=== PATIENT | female | born 1980 | race American Indian/Alaskan Native ===

== ENCOUNTER 2017-07-20 13:48 | Emergency (ER) | payer OTHER ==
[2017-07-20] MEDS ORDERED: ZOFRAN IV ONE ×2 (14:22→21:28)
[2017-07-20] MEDS ORDERED: NACL 0.9% 1000 ML 1,000 ML IV ONE (14:22)
[2017-07-20 15:18] LABS: Basophils % (Auto) 0.2 % (0.0-1.8); Eosinophils % (Auto) 0.5 % (0.0-4.3); Hematocrit 30.9 % (30.3-42.9); Hemoglobin 9.6 gm/dl (10.1-14.3); Lymphocytes # (Auto) 1.4 K/mm3 (1.2-5.4); Lymphocytes % (Auto) 13.7 % (13.4-35.0); Mean Corpuscular HGB Conc 31 % (30-34); Monocytes # (Auto) 0.9 K/mm3 (0.0-0.8); Monocytes % (Auto) 9.1 % (0.0-7.3); Platelet Count 314 K/mm3 (140-440); Red Blood Count 4.62 M/mm3 (3.65-5.03); Red Cell Distribution Width 19.4 % (13.2-15.2)
[2017-07-20 15:41] LABS: Mean Corpuscular Hemoglobin 21 pg (28-32); Mean Corpuscular Volume 67 fl (79-97)
[2017-07-20 15:42] LABS: Alanine Aminotransferase 18 units/L (7-56); Albumin 3.6 g/dL (3.9-5); BUN/Creatinine Ratio 13; Blood Urea Nitrogen 8 mg/dL (7-17); Calcium 8.7 mg/dL (8.4-10.2); Hemolysis Index 3; Lipase 25 units/L (13-60)
--- NOTE | 2017-07-20 16:15 | Emergency Department Report ---
ED Abdominal Pain HPI - General Chief Complaint: Abdominal Pain Stated Complaint: OB/POSS MISCARRIAGE Time Seen by Provider: 07/20/17 16:05 Source: patient, EMS Mode of arrival: Stretcher Limitations: No Limitations - History of Present Illness Initial Comments: Is a 37-year-old female who presents to emergency room with abdominal cramping 3 days and become worse today. Patient is 16 weeks and has had care. Patient also complains of nausea and vomiting. Patient describes it as a cramping as fluctuating in intensity and intermittent. Patient does not describe them as a contraction though patient does complain of constant vaginal pressure. Patient also states that she had some fluid per the vagina but no vaginal bleeding. Patient states the pain is at its worse at 10 out of 10 and and at times is as low as 5 out of 10. Patient states the pain is better with rest and lying still. Patient states that the pain is worse with walking and moving. MD Complaint: abdominal pain -: Sudden Location: suprapubic Radiation: other (vagina) Severity scale (0 -10): 10 Quality: cramping, stabbing Consistency: intermittent Improves With: rest Worsens With: movement Context: other () Associated Symptoms: nausea, vomiting - Related Data LMP (females 10-50): Previous Rx's Medication Instructions Recorded Last Taken Type Acetaminophen/Codeine 1 tab PO Q6H PRN #25 tab 05/09/14 Unknown Rx [Acetaminophen-Codeine #3 TAB] Diazepam 5 mg PO TID PRN #21 tablet 05/24/14 Unknown Rx Diclofenac Sodium 75 mg PO BID PRN #30 tablet. 05/24/14 Unknown Rx Indomethacin [Indocin] 25 mg PO Q8H 3 Days #9 capsule 07/20/17 Unknown Rx Ondansetron [Zofran Odt] 4 mg PO Q8H PRN #30 tab.rapdis 07/20/17 Unknown Rx Allergies Allergy/AdvReac Type Severity Reaction Status Date / Time No Known Allergies Allergy Verified 07/20/17 14:06 ED Review of Systems ROS: Stated complaint: OB/POSS MISCARRIAGE Other details as noted in HPI Constitutional: no symptoms reported. denies: chills, fever Eyes: as per HPI. denies: eye pain, eye discharge, vision change ENT: as per HPI. denies: ear pain, throat pain Respiratory: no symptoms reported. denies: cough, shortness of breath, wheezing Cardiovascular: denies: chest pain, palpitations Endocrine: no symptoms reported Gastrointestinal: as per HPI, abdominal pain, nausea. denies: diarrhea Genitourinary: denies: urgency, dysuria, discharge Musculoskeletal: denies: back pain, joint swelling, arthralgia Skin: denies: rash, lesions Neurological: denies: headache, weakness, paresthesias Psychiatric: denies: anxiety, depression Hematological/Lymphatic: denies: easy bleeding, easy bruising ED Past Medical Hx - Past Medical History Previous Medical History?: Yes Additional medical history: ? history of thyroid problems per patient - Surgical History Past Surgical History?: No - Family History Family history: no significant - Social History Smoking Status: Never Smoker Substance Use Type: None - Medications Home Medications: Home Medications Medication Instructions Recorded Confirmed Last Taken Type Acetaminophen/Codeine 1 tab PO Q6H PRN #25 tab 05/09/14 12/29/15 Unknown Rx [Acetaminophen-Codeine #3 TAB] Diazepam 5 mg PO TID PRN #21 tablet 05/24/14 12/29/15 Unknown Rx Diclofenac Sodium 75 mg PO BID PRN #30 tablet.dr 05/24/14 12/29/15 Unknown Rx Indomethacin [Indocin] 25 mg PO Q8H 3 Days #9 capsule 07/20/17 Unknown Rx Ondansetron [Zofran Odt] 4 mg PO Q8H PRN #30 tab.rapdis 07/20/17 Unknown Rx ED Physical Exam - General Limitations: No Limitations General appearance: alert, in no apparent distress - Head Head exam: Present: atraumatic, normocephalic - Eye Eye exam: Present: normal appearance - ENT ENT exam: Present: mucous membranes moist - Neck Neck exam: Present: normal inspection - Respiratory Respiratory exam: Present: normal lung sounds bilaterally. Absent: respiratory distress - Cardiovascular Cardiovascular Exam: Present: regular rate, normal rhythm. Absent: systolic murmur, diastolic murmur, rubs, gallop - GI/Abdominal GI/Abdominal exam: Present: soft, tenderness (suprapubic tenderness), normal bowel sounds - Extremities Exam Extremities exam: Present: normal inspection - Back Exam Back exam: Present: normal inspection - Neurological Exam Neurological exam: Present: alert, oriented X3 - Psychiatric Psychiatric exam: Present: normal affect, normal mood - Skin Skin exam: Present: warm, dry, intact, normal color. Absent: rash ED Course Vital Signs 07/20/17 07/20/17 07/20/17 13:57 14:31 15:00 Temperature 99.5 F Pulse Rate 119 H 122 H 103 H Respiratory 20 28 H 15 Rate Blood Pressure 131/75 131/75 101/47 O2 Sat by Pulse 100 99 100 Oximetry 07/20/17 07/20/17 07/20/17 15:15 15:30 16:01 Temperature Pulse Rate 91 H 105 H Respiratory 20 25 H 31 H Rate Blood Pressure 109/57 123/81 O2 Sat by Pulse 100 100 100 Oximetry 07/20/17 07/20/17 07/20/17 16:55 17:00 17:31 Temperature Pulse Rate 102 H 97 H 104 H Respiratory 17 22 16 Rate Blood Pressure 113/71 110/72 123/81 O2 Sat by Pulse 96 100 100 Oximetry 07/20/17 07/20/17 07/20/17 17:39 18:00 18:31 Temperature Pulse Rate 98 H Respiratory 16 21 18 Rate Blood Pressure 105/57 105/57 O2 Sat by Pulse 100 100 Oximetry 07/20/17 19:00 Temperature Pulse Rate 103 H Respiratory 20 Rate Blood Pressure 113/68 O2 Sat by Pulse 100 Oximetry - Reevaluation(s) Reevaluation #1: 07/20/17 19:14... Spoke with Dr. Sin, LABOR DELIVERY SPECIALIST acquisition marketing manager for patient's OB, she recommends discharging the patient home with a prescription of indomethacin 25 mg 3 times a day for 3 days and a loading dose in the Hospital of indomethacin [address] Sin states that this is a fibroid pain due to patient being and having such large fibroids. Labs and ultrasound discussed fully with Dr. Sin. Patient dynamically stable and Dr. Sin feels the patient is stable for discharge. Dr. Sin states she will see the patient the morning at the office. Reevaluation #2: 07/20/17 19:42... Patient doing better. Patient stable for discharge ED Medical Decision Making - Lab Data Result diagrams: 07/20/17 14:40 07/20/17 14:40 - Radiology Data Radiology results: report reviewed - Medical Decision Making Discussed case with LABOR DELIVERY SPECIALIST. An LABOR DELIVERY SPECIALIST feels that the patient is stable for discharge from a standpoint of the . Patient is stable for discharge. Patient will be given prescriptions and instructions to follow up with her OB/ [employer] office in the morning. All labs discuss with patient - Differential Diagnosis threatened , abdominal pain, infection, fibroid pain Critical care attestation.: If time is entered above; I have spent that time in minutes in the direct care of this critically ill patient, excluding procedure time. ED Disposition Clinical Impression: Abdominal pain, , Nausea & vomiting, Fibroids Disposition: TO HOME OR SELFCARE Is pt being admited?: No Does the pt Need Aspirin: No Condition: Stable Instructions: Abdominal Pain (ED), Uterine Fibroids (ED) Additional Instructions: Patient to follow up with LABOR DELIVERY SPECIALIST office in the morning. Patient to return to ER if condition worsens. Patient increase water. Patient to continue vitamin. Patient take Indocin as directed. Patient to rest and take Tylenol when necessary Prescriptions: Indomethacin [Indocin] 25 mg PO Q8H 3 Days #9 capsule Ondansetron [Zofran Odt] 4 mg PO Q8H PRN #30 tab.rapdis PRN Reason: Nausea And Vomiting Referrals: PRIMARY CARE, [Primary Care Provider] - 3-5 Days Time of Disposition: 19:42
--- NOTE | 2017-07-20 17:01 | Ultrasound Report ---
FINAL REPORT PROCEDURE: US OB > = 14 WEEKS FETUS TECHNIQUE: Real-time limited sonographic examination was performed for evaluation of size, position, heartbeat, fluid volume for each fetus with image documentation (1 or more fetuses). CPT 35314 HISTORY: abd pain COMPARISON: No prior studies are available for comparison. FINDINGS: There is a single living intrauterine gestation currently visualized in the transverse presentation head on the maternal left. heart rate of 148 beats per minute is detected. The amount of amniotic fluid subjectively appears normal. Cervix length 3.5 centimeter. Grade 0 placenta visualized posterior and fundal. No evidence of placenta abruption or placenta previa. Detailed exam of the anatomy was not performed today. No gross abnormalities are seen on the images provided. There is a large mass visualized in the lower uterine segment anteriorly measuring 10 centimeter x 8 centimeter x 0.5 centimeters. This shows heterogeneous decreased echogenicity in consistent with a large fibroid. A smaller fibroid measuring 2.1 x 2.3 x 1.8 centimeter is also visualized anteriorly. MEASUREMENTS BPD: 3.7 centimeter equals 17 week 2 days. HC: 13.8 centimeter equals. AC: 17 week 1 day 11.3 centimeter equals 17 week 1 day. FL: 2.1 centimeter equals 16 week 2 days. Mean Gestational Age (composite criteria): 17 week 0 day. Estimated Weight: 168 grams. Plus or minus 25 grams. 0 pound 6 ounces +/-1 ounce estimated date of confinement 12/28/2017 +/-1.5 weeks. IMPRESSION: There is a single living intrauterine gestation visualized currently in the transverse presentation head on the maternal left. Amount of amniotic fluid appears normal. Average sonographic age by today's study is 17 week 0 days. This places the EDC at 12/28/2017 +/-1.5 weeks detailed exam of the anatomy was not performed today. The images provided showed no gross abnormality. Large uterine fibroids present as described above. Please see above.
[2017-07-20] MEDS ORDERED: MORPHINE IV ONE (17:10)
[2017-07-20] MEDS ORDERED: MORPHINE ONE (17:26)
[2017-07-20] MEDS ORDERED: MORPHINE IV PRN (18:56)
[2017-07-20 19:19] LABS: Bilirubin,Urine NEG (Negative); Blood,Urine NEG (Negative); Color,Urine Yellow (Yellow); Hyaline Casts,Urine 1 /LPF; Mucus,Urine FEW /HPF; Nitrite,Urine NEG (Negative); Protein,Urine <15 mg/dL mg/dL (Negative); Urobilinogen,Urine < 2.0 mg/dL (<2.0); WBC,Urine < 1.0 /HPF (0.0-6.0)
[2017-07-20] MEDS ORDERED: INDOCIN PO ONE (21:00)
[2017-07-20 21:49] VITALS: BP 126/74
== END 2017-07-20 22:19 | disposition home or self-care (01) ==
LOC: ED 13:48
DX: O34.12 Maternal care for benign tumor of corpus uteri, second trimester (principal); Z3A.16 16 weeks gestation of pregnancy; O21.0 Mild hyperemesis gravidarum; R10.9 Unspecified abdominal pain
CPT/HCPCS: 36415; 76805; 80053; 81001; 83690; 84702; 85025; 96361; 96374; 96375; 96376; 99284; J2270; J2405; J7030

== ENCOUNTER 2019-08-06 10:37 | Emergency (ER) | payer OTHER ==
[2019-08-06] MEDS ORDERED: SODIUM CHLORIDE 0.9% 1000 ML 1,000 ML IV ONE (11:17)
[2019-08-06] MEDS ORDERED: ONDANSETRON 4 MG/2 ML INJ IV ONE (11:17)
[2019-08-06] MEDS ORDERED: SODIUM CHLORIDE 0.9% 1000 ML 2,000 ML IV ONE (11:17)
--- NOTE | 2019-08-06 11:18 | Emergency Department Report ---
ED General Adult HPI - General Chief complaint: Syncope Stated complaint: SYNCOPE Time Seen by Provider: 08/06/19 11:07 Source: patient, EMS ( EMS documentation not available at time of chart dictation ), RN notes reviewed, old records reviewed Mode of arrival: Stretcher Limitations: No Limitations - History of Present Illness Initial comments: Patient is a 39-year-old female. She is not known to myself previously. During the history and physical examination, I am soft shoe dancer and escorted by nurse Julissa Reynolds. She states that she is not . She presents to the ER today with a complaint of nasal congestion, cough, diarrhea, and generalized weakness. Apparently she was at court earlier on today, and felt quite weak. She reports multiple sick contacts in her young children, some of whom have been diagnosed with the flu, 7 or 8 days ago. She reports a few episodes of nonbloody, nonbilious diarrhea, painless, without irritative or obstructive urinary symptoms. She denies leg pain and leg swelling. 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 The patient denies chest pain and exertional shortness of breath. Her cough is intermittent. Her nasal congestion is intermittent. Her diarrhea is apparently now resolved. In the emergency room, she is given IV fluids and supportive care, all of which markedly improved her symptoms. -: Gradual, days(s) Location: face Consistency: intermittent Improves with: medication, rest Worsens with: none Associated Symptoms: cough, fever/chills, malaise, nausea/vomiting, weakness - Related Data Previous Rx's Medication Instructions Recorded Last Taken Type Acetaminophen [Non-Aspirin Extra 500 mg PO Q6HR PRN #30 tablet 08/06/19 Unknown Rx Strength] Albuterol Sulfate [Proair 90 mcg IH Q4HR PRN #2 [email or web address] 08/06/19 Unknown Rx Respiclick] Ondansetron [Zofran Odt] 4 mg PO Q8HR PRN #20 tab.rapdis 08/06/19 Unknown Rx Allergies Allergy/AdvReac Type Severity Reaction Status Date / Time No Known Allergies Allergy Verified 07/20/17 14:06 ED Review of Systems ROS: Stated complaint: SYNCOPE Other details as noted in HPI Constitutional: see HPI Eyes: as per HPI ENT: as per HPI Respiratory: see HPI Cardiovascular: as per HPI Endocrine: see HPI Gastrointestinal: as per HPI Genitourinary: as per HPI Musculoskeletal: as per HPI Skin: as per HPI Neurological: as per HPI Psychiatric: as per HPI Hematological/Lymphatic: as per HPI ED Past Medical Hx - Past Medical History Hx Seizures: Yes Hx Asthma: Yes Additional medical history: ? history of thyroid problems per patient - Surgical History Additional Surgical History: - Social History Smoking Status: Never Smoker Substance Use Type: None - Medications Home Medications: Home Medications Medication Instructions Recorded Confirmed Last Taken Type Acetaminophen [Non-Aspirin Extra 500 mg PO Q6HR PRN #30 tablet 08/06/19 Unknown Rx Strength] Albuterol Sulfate [Proair 90 mcg IH Q4HR PRN #2 [email or web address] 08/06/19 Unknown Rx Respiclick] Ondansetron [Zofran Odt] 4 mg PO Q8HR PRN #20 tab.rapdis 08/06/19 Unknown Rx ED Physical Exam - General Limitations: No Limitations General appearance: alert, anxious, obese - Head Head exam: Present: atraumatic, normocephalic - Eye Eye exam: Present: normal appearance, EOMI. Absent: nystagmus - ENT ENT exam: Present: normal exam, normal orophraynx, mucous membranes moist, normal external ear exam - Neck Neck exam: Present: normal inspection, full ROM. Absent: tenderness, meningismus - Respiratory Respiratory exam: Present: normal lung sounds bilaterally. Absent: respiratory distress, chest wall tenderness, accessory muscle use, decreased breath sounds, prolonged expiratory - Cardiovascular Cardiovascular Exam: Present: regular rate, normal rhythm, normal heart sounds. Absent: bradycardia, tachycardia, irregular rhythm, systolic murmur, diastolic murmur, rubs, gallop - GI/Abdominal GI/Abdominal exam: Present: soft, normal bowel sounds. Absent: distended, tenderness, guarding, rebound, rigid, pulsatile mass - Extremities Exam Extremities exam: Present: normal inspection, full ROM, other (2+ pulses noted in the bilateral upper and lower extremities. There is no palpable cord. negative Homans sign. Muscular compartments are soft. The pelvis is stable.). Absent: pedal edema, calf tenderness - Back Exam Back exam: Present: normal inspection, full ROM. Absent: tenderness, CVA ten derness (R), CVA tenderness (L), paraspinal tenderness, vertebral tenderness - Neurological Exam Neurological exam: Present: alert, oriented X3, other (There is no facial droop. The tongue is midline. Extraocular movements are intact bilaterally. There is 5 out of 5 strength in bilateral upper and lower extremities. Sensation is intact to light touch bilateral upper and lower extremities. There is no past- pointing. There is no pronator drift. There is normal [id number]. There is a normal gait.). Absent: motor sensory deficit - Psychiatric Psychiatric exam: Present: anxious - Skin Skin exam: Present: warm, dry, intact, normal color. Absent: rash ED Course Vital Signs 08/06/19 08/06/19 08/06/19 10:57 11:14 12:00 Temperature 97.4 F L Pulse Rate 89 88 Respiratory 10 L Rate Blood Pressure 119/68 Blood Pressure 136/87 [Left] O2 Sat by Pulse 97 100 Oximetry 08/06/19 13:30 Temperature Pulse Rate 89 Respiratory 21 Rate Blood Pressure Blood Pressure 127/80 [Left] O2 Sat by Pulse 99 Oximetry - Reevaluation(s) Reevaluation #1: 08/06/19 13:49 Vital Signs 08/06/19 08/06/19 08/06/19 10:57 11:14 12:00 Temperature 97.4 F L Pulse Rate 89 88 Respiratory 10 L Rate Blood Pressure 119/68 Blood Pressure 136/87 [Left] O2 Sat by Pulse 97 100 Oximetry 08/06/19 13:30 Temperature Pulse Rate 89 Respiratory 21 Rate Blood Pressure Blood Pressure 127/80 [Left] O2 Sat by Pulse 99 Oximetry Lab Results 08/06/19 08/06/19 08/06/19 Range/Units 11:36 11:36 11:36 WBC 5.6 (4.5-11.0) K/mm3 RBC 5.56 H (3.65-5.03) M/mm3 Hgb 11.7 (10.1-14.3) gm/dl Hct 37.8 (30.3-42.9) % MCV 68 L (79-97) fl MCH 21 L (28-32) pg MCHC 31 (30-34) % RDW 18.4 H (13.2-15.2) % Plt Count 276 (140-440) K/mm3 PT 13.2 (12.2-14.9) Sec. INR 0.99 (0.87-1.13) Sodium 138 (137-145) mmol/L Potassium 4.3 (3.6-5.0) mmol/L Chloride 101.1 (98-107) mmol/L Carbon Dioxide 21 L (22-30) mmol/L Anion Gap 20 mmol/L BUN 11 (7-17) mg/dL Creatinine 0.7 (0.7-1.2) mg/dL Estimated GFR > 60 ml/min BUN/Creatinine Ratio 16 % Glucose 121 H (65-100) mg/dL Calcium 8.8 (8.4-10.2) mg/dL Magnesium 2.30 (1.7-2.3) mg/dL Total Bilirubin 0.40 (0.1-1.2) mg/dL AST 19 (5-40) units/L ALT 15 (7-56) units/L Alkaline Phosphatase 75 (35-129) units/L Total Creatine Kinase 308 H (30-135) units/L Total Protein 7.6 (6.3-8.2) g/dL Albumin 4.1 (3.9-5) g/dL Albumin/Globulin Ratio 1.2 % TSH (0.270-4.200) mlU/mL HCG, Quant (0-4) mIU/mL Urine Color (Yellow) Urine Turbidity (Clear) Urine pH (5.0-7.0) Ur Specific [place] (1.003-1.030) Urine Protein (Negative) mg/dL Urine Glucose (UA) (Negative) mg/dL Urine Ketones (Negative) mg/dL Urine Blood (Negative) Urine Nitrite (Negative) Urine Bilirubin (Negative) Urine Urobilinogen (<2.0) mg/dL Ur Leukocyte Esterase (Negative) Urine WBC (Auto) (0.0-6.0) /HPF Urine RBC (Auto) (0.0-6.0) /HPF U Epithel Cells (Auto) (0-13.0) /HPF Urine Mucus /HPF 08/06/19 08/06/19 08/06/19 Range/Units 11:36 11:36 11:38 WBC (4.5-11.0) K/mm3 RBC (3.65-5.03) M/mm3 Hgb (10.1-14.3) gm/dl Hct (30.3-42.9) % MCV (79-97) fl MCH (28-32) pg MCHC (30-34) % RDW (13.2-15.2) % Plt Count (140-440) K/mm3 PT (12.2-14.9) Sec. INR (0.87-1.13) Sodium (137-145) mmol/L Potassium (3.6-5.0) mmol/L Chloride (98-107) mmol/L Carbon Dioxide (22-30) mmol/L Anion Gap mmol/L BUN (7-17) mg/dL Creatinine (0.7-1.2) mg/dL Estimated GFR ml/min BUN/Creatinine Ratio % Glucose (65-100) mg/dL Calcium (8.4-10.2) mg/dL Magnesium (1.7-2.3) mg/dL Total Bilirubin (0.1-1.2) mg/dL AST (5-40) units/L ALT (7-56) units/L Alkaline Phosphatase (35-129) units/L Total Creatine Kinase (30-135) units/L Total Protein (6.3-8.2) g/dL Albumin (3.9-5) g/dL Albumin/Globulin Ratio % TSH 1.240 (0.270-4.200) mlU/mL HCG, Quant < 2 (0-4) mIU/mL Urine Color Yellow (Yellow) Urine Turbidity Clear (Clear) Urine pH 8.0 H (5.0-7.0) Ur Specific [place] 1.019 (1.003-1.030) Urine Protein <15 mg/dl (Negative) mg/dL Urine Glucose (UA) Neg (Negative) mg/dL Urine Ketones Neg (Negative) mg/dL Urine Blood Neg (Negative) Urine Nitrite Neg (Negative) Urine Bilirubin Neg (Negative) Urine Urobilinogen < 2.0 (<2.0) mg/dL Ur Leukocyte Esterase Neg (Negative) Urine WBC (Auto) 1.0 (0.0-6.0) /HPF Urine RBC (Auto) 1.0 (0.0-6.0) /HPF U Epithel Cells (Auto) 1.0 (0-13.0) /HPF Urine Mucus Few /HPF The patient is observed for hours. She has clinically improved. No active vomiting. Tolerating liquid feeds. Objective laboratory testing, EKG, x-ray of the chest unremarkable, urinalysis not consistent with infection/pathology. Patient most likely has a viral syndrome, possible influenza-like illness, orthostasis,. 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 Discussed this with the patient who verbalized understanding. ED Medical Decision Making - Lab Data Result diagrams: 08/06/19 11:36 08/06/19 11:36 Vital Signs 08/06/19 08/06/19 10:57 11:14 Temperature 97.4 F L Pulse Rate 89 Blood Pressure 119/68 O2 Sat by Pulse 97 Oximetry Lab Results 08/06/19 08/06/19 08/06/19 Range/Units 11:36 11:36 11:36 WBC 5.6 (4.5-11.0) K/mm3 RBC 5.56 H (3.65-5.03) M/mm3 Hgb 11.7 (10.1-14.3) gm/dl Hct 37.8 (30.3-42.9) % MCV 68 L (79-97) fl MCH 21 L (28-32) pg MCHC 31 (30-34) % RDW 18.4 H (13.2-15.2) % Plt Count 276 (140-440) K/mm3 PT 13.2 (12.2-14.9) Sec. INR 0.99 (0.87-1.13) Sodium 138 (137-145) mmol/L Potassium 4.3 (3.6-5.0) mmol/L Chloride 101.1 (98-107) mmol/L Carbon Dioxide 21 L (22-30) mmol/L Anion Gap 20 mmol/L BUN 11 (7-17) mg/dL Creatinine 0.7 (0.7-1.2) mg/dL Estimated GFR > 60 ml/min BUN/Creatinine Ratio 16 % Glucose 121 H (65-100) mg/dL Calcium 8.8 (8.4-10.2) mg/dL Magnesium 2.30 (1.7-2.3) mg/dL Total Bilirubin 0.40 (0.1-1.2) mg/dL AST 19 (5-40) units/L ALT 15 (7-56) units/L Alkaline Phosphatase 75 (35-129) units/L Total Creatine Kinase 308 H (30-135) units/L Total Protein 7.6 (6.3-8.2) g/dL Albumin 4.1 (3.9-5) g/dL Albumin/Globulin Ratio 1.2 % TSH (0.270-4.200) mlU/mL HCG, Quant (0-4) mIU/mL Urine Color (Yellow) Urine Turbidity (Clear) Urine pH (5.0-7.0) Ur Specific [place] (1.003-1.030) Urine Protein (Negative) mg/dL Urine Glucose (UA) (Negative) mg/dL Urine Ketones (Negative) mg/dL Urine Blood (Negative) Urine Nitrite (Negative) Urine Bilirubin (Negative) Urine Urobilinogen (<2.0) mg/dL Ur Leukocyte Esterase (Negative) Urine WBC (Auto) (0.0-6.0) /HPF Urine RBC (Auto) (0.0-6.0) /HPF U Epithel Cells (Auto) (0-13.0) /HPF Urine Mucus /HPF 08/06/19 08/06/19 08/06/19 Range/Units 11:36 11:36 11:38 WBC (4.5-11.0) K/mm3 RBC (3.65-5.03) M/mm3 Hgb (10.1-14.3) gm/dl Hct (30.3-42.9) % MCV (79-97) fl MCH (28-32) pg MCHC (30-34) % RDW (13.2-15.2) % Plt Count (140-440) K/mm3 PT (12.2-14.9) Sec. INR (0.87-1.13) Sodium (137-145) mmol/L Potassium (3.6-5.0) mmol/L Chloride (98-107) mmol/L Carbon Dioxide (22-30) mmol/L Anion Gap mmol/L BUN (7-17) mg/dL Creatinine (0.7-1.2) mg/dL Estimated GFR ml/min BUN/Creatinine Ratio % Glucose (65-100) mg/dL Calcium (8.4-10.2) mg/dL Magnesium (1.7-2.3) mg/dL Total Bilirubin (0.1-1.2) mg/dL AST (5-40) units/L ALT (7-56) units/L Alkaline Phosphatase (35-129) units/L Total Creatine Kinase (30-135) units/L Total Protein (6.3-8.2) g/dL Albumin (3.9-5) g/dL Albumin/Globulin Ratio % TSH 1.240 (0.270-4.200) mlU/mL HCG, Quant < 2 (0-4) mIU/mL Urine Color Yellow (Yellow) Urine Turbidity Clear (Clear) Urine pH 8.0 H (5.0-7.0) Ur Specific [place] 1.019 (1.003-1.030) Urine Protein <15 mg/dl (Negative) mg/dL Urine Glucose (UA) Neg (Negative) mg/dL Urine Ketones Neg (Negative) mg/dL Urine Blood Neg (Negative) Urine Nitrite Neg (Negative) Urine Bilirubin Neg (Negative) Urine Urobilinogen < 2.0 (<2.0) mg/dL Ur Leukocyte Esterase Neg (Negative) Urine WBC (Auto) 1.0 (0.0-6.0) /HPF Urine RBC (Auto) 1.0 (0.0-6.0) /HPF U Epithel Cells (Auto) 1.0 (0-13.0) /HPF Urine Mucus Few /HPF - EKG Data -: EKG Interpreted by [place] - EKG Data 08/06/19 13:27 The EKG today shows a sinus rhythm, 78 bpm, normal axis, QTC 452 ms, Q waves noted in the inferior leads, the EKG is abnormal, it is unchanged from prior EKG from December 2015. It is not consistent with ST elevation myocardial infarction. - Radiology Data Radiology results: pending, report reviewed, image reviewed X-ray of the chest is negative for acute disease Critical care attestation.: If time is entered above; I have spent that time in minutes in the direct care of this critically ill patient, excluding procedure time. ED Disposition Clinical Impression: Viral syndrome, Orthostasis Disposition: [id number] TO HOME OR SELFCARE Is pt being admited?: No Does the pt Need Aspirin: No Condition: Stable Additional Instructions: Patient most likely having viral syndrome/viral enteritis. Make certain to wash hands very thoroughly with soap and water before handling food, and after coughing, sneezing, or using the restroom/bathroom. Advance diet as tolerated, drink plenty of fluids, and participate with bread, rice, apples, toast, and gentle solids. Recommend patient not drive, not operate motor vehicles, and not fly until she is feeling better, and until cleared to do so by her primary care doctor. Recommend following up with a primary care doctor within the next 5 to 7 days. Take the prescription medications as needed and directed. Return to the emergency room right away with new, worsened or different symptoms, or symptoms not present on the initial emergency room evaluation. Referrals: RUDY HORVATH MD [Staff Physician] - 3-5 Days [facility] [Provider Group] - 3-5 Days [facility] [Provider Group] - 3-5 Days Forms: Work/School Release Form(ED)
[2019-08-06 11:51] LABS: Hematocrit 37.8 % (30.3-42.9); Hemoglobin 11.7 gm/dl (10.1-14.3); Mean Corpuscular HGB Conc 31 % (30-34); Platelet Count 276 K/mm3 (140-440); Red Blood Count 5.56 M/mm3 (3.65-5.03); Red Cell Distribution Width 18.4 % (13.2-15.2)
[2019-08-06 11:52] LABS: Bilirubin,Urine NEG (Negative); Blood,Urine NEG (Negative); Color,Urine Yellow (Yellow); Mucus,Urine FEW /HPF; Protein,Urine <15 mg/dL mg/dL (Negative); Urobilinogen,Urine < 2.0 mg/dL (<2.0)
[2019-08-06 11:53] LABS: Mean Corpuscular Volume 68 fl (79-97)
[2019-08-06 12:05] LABS: INR 0.99 (0.87-1.13)
[2019-08-06 12:14] LABS: Alanine Aminotransferase 15 units/L (7-56); Albumin 4.1 g/dL (3.9-5); BUN/Creatinine Ratio 16; Blood Urea Nitrogen 11 mg/dL (7-17); Calcium 8.8 mg/dL (8.4-10.2); Hemolysis Index 68
[2019-08-06] MEDS ORDERED: ACETAMINOPHEN 325 MG/10.15 ML ORAL LIQD UNIT DOSE PO ONE (12:18)
[2019-08-06] MEDS ORDERED: ALBUTEROL 2.5 MG/3 ML NEBU IH ONE (12:18)
--- NOTE | 2019-08-06 12:49 | XRay Report ---
CHEST 1 VIEW 08/06/2019 12:18 PM INDICATION / CLINICAL INFORMATION: Cough, fever. COMPARISON: None available. FINDINGS: SUPPORT DEVICES: None. HEART / MEDIASTINUM: No significant abnormality. LUNGS / PLEURA: No significant pulmonary or pleural abnormality. No pneumothorax. ADDITIONAL FINDINGS: No significant additional findings. IMPRESSION: 1. No acute findings. Signer Name: Domenico Caal MD Signed: 08/06/2019 12:45 PM Workstation Name: [id number]
[2019-08-06 15:31] VITALS: BP 126/80
== END 2019-08-06 15:33 | disposition home or self-care (01) ==
LOC: ED 10:37
DX: B34.9 Viral infection, unspecified (principal); I95.1 Orthostatic hypotension; G40.909 Epilepsy, unspecified, not intractable, without status epilepticus; J45.909 Unspecified asthma, uncomplicated; Z79.899 Other long term (current) drug therapy; Z98.890 Other specified postprocedural states; R19.7 Diarrhea, unspecified
CPT/HCPCS: 36415; 71045; 80053; 81001; 82550; 83735; 84443; 84702; 85027; 85610; 93005; 93010; 94640; 96361; 96374; 99285; J2405; J7030